=== PATIENT | male | born 1960 | race Caucasian/White ===

== ENCOUNTER 2023-10-08 12:34 | Emergency (ER) | payer BC, OTHER ==
--- NOTE | 2023-10-08 14:45 | RAD REPORT ---
EXAM DESCRIPTION: RAD - Ankle Right 3 View - 10/08/2023 2:29 pm CLINICAL HISTORY: PAIN COMPARISON: No comparisons FINDINGS/IMPRESSION: No acute fracture. No malalignment. Calcaneal spurs. Surgical clips in the soft tissues.
[2023-10-08 14:51] LABS: Absolute Lymphocytes (CBC) 1.5 K/uL (0.7-4.9); Hematocrit 35.1 % (39.6-49.0); Lymphocytes % 17.8 % (15.3-44.8); MCV 91.5 fL (80-100); MPV 8.7 fL (7.6-11.3); Platelets 260 thou/uL (152-406); RBC Red Blood Cell Count 3.83 M/uL (4.33-5.43)
--- NOTE | 2023-10-08 14:56 | RAD REPORT ---
EXAM DESCRIPTION: US - Extremity Venous Uni Ltd - 10/08/2023 2:19 pm CLINICAL HISTORY: Pain COMPARISON: None. TECHNIQUE: Real-time sonographic evaluation of the right lower extremity deep venous system was perf ormed. FINDINGS: Normal compressibility, flow augmentation, phasic flow and spontaneous flow is identified in the right lower extremity deep venous system. No intraluminal filling defects seen. IMPRESSION: No DVT in the right lower extremity.
[2023-10-08] MEDS ORDERED: HYDROCODONE/APAP 10/325 TAB ONE (15:11)
[2023-10-08 15:14] LABS: Albumin 3.6 g/dL (3.4-5.0); Bilirubin Direct 0.2 mg/dL (0-0.2); Bilirubin Indirect, Calculated 0.6 mg/dL (0.2-0.8); Bilirubin Total 0.8 mg/dL (0.2-1.0); Magnesium 2.1 mg/dL (1.6-2.4); Potassium 3.1 mEq/L (3.5-5.1); Protein, Total 7.5 g/dL (6.4-8.2); Troponin High Sensitivity 8.9 pg/mL (<58.9)
--- NOTE | 2023-10-08 15:30 | EDPHYS ---
Physician Documentation [facility] Name: Luis A Hale Age: 63 yrs Sex: Male : 1960 Arrival Date: 10/08/2023 Time: 12:34 Bed 8 Private MD: ED Physician Amor Landin HPI: 10/08 15:07 This 63 yrs old Male presents to ER via Wheelchair with complaints of Ankle Swelling. rt 15:07 Patient presents to the ED with swelling, pain to the right ankle which he first rt noticed last night. He reports compliance with his Xarelto. Is worse when he bears weight. Denies any injury. Denies other acute complaints at this time. Pain is aching nature, nonradiating, no other aggravating alleviating factors.. Historical: - Allergies: 13:01 No Known Allergies; mb9 - Home Meds: 13: Lasix 20 mg Oral tablet [Active]; Hydrochlorothiazide Oral [Active]; Xarelto oral mb9 [Active]; amlodipine 10 mg tablet [Active]; Synthroid 200 mcg Oral tablet [Active]; gabapentin 100 mg oral capsule [Active]; bupropion HCl 300 mg Oral Tablet, Extended Release 24 hr [Active]; allopurinol 100 mg Oral tablet [Active]; pravastatin 20 mg oral tablet [Active]; nadolol 40 mg oral tablet [Active]; - PMHx: 13:01 Hypertensive disorder; Diabetes mellitus; Gout; Hypercholesterolemia; mb9 - PSHx: 13:01 triple bypass; mb9 - Immunization history:: Adult Immunizations up to date. - Social history:: Smoking status: Patient denies any tobacco usage or history of. - Family history:: not pertinent. ROS: 15:07 Constitutional: Negative for fever, chills, and weight loss, Cardiovascular: Negative rt for chest pain, palpitations, and edema, Respiratory: Negative for shortness of breath, cough, wheezing, and pleuritic chest pain, Abdomen/GI: Negative for abdominal pain, nausea, vomiting, diarrhea, and constipation, Skin: Negative for injury, rash, and discoloration, Neuro: Negative for headache, weakness, numbness, tingling, and seizure, Psych: Negative for depression, anxiety, suicide ideation, homicidal ideation, and hallucinations, 15:07 MS/extremity: Positive for pain, swelling, Exam: 15:07 Constitutional: This is a well developed, well nourished patient who is awake, alert, rt and in no acute distress. Head/Face: Normocephalic, atraumatic. Chest/axilla: Normal chest wall appearance and motion. Nontender with no deformity. No lesions are appreciated. Cardiovascular: Regular rate and rhythm with a normal S1 and S2. No gallops, murmurs, or rubs. Normal PMI, no JVD. No pulse deficits. Respiratory: Lungs have equal breath sounds bilaterally, clear to auscultation and percussion. No rales, rhonchi or wheezes noted. No increased work of breathing, no retractions or nasal flaring. Abdomen/GI: Soft, non-tender, with normal bowel sounds. No distension or tympany. No guarding or rebound. No evidence of tenderness throughout. Skin: Warm, dry with normal turgor. Normal color with no rashes, no lesions, and no evidence of cellulitis. Neuro: Awake and alert, GCS 15, oriented to person, place, time, and situation. Cranial nerves II-XII grossly intact. Motor strength 5/5 in all extremities. Sensory grossly intact. Cerebellar exam normal. Normal gait. Psych: Awake, alert, with orientation to person, place and time. Behavior, mood, and affect are within normal limits. 15:07 ECG was reviewed by the Attending Physician. 15:07 Musculoskeletal/extremity: 2+ edema to the right lower extremity at the level of the ankle, tenderness over the medial malleolus, no bruising noted. Pulses, motor, sensation intact. Vital Signs: 13:00 Pulse 86; Resp 18; Temp 98; Pulse Ox 100% on R/A; mb9 13:20 Weight 122.47 kg; rs5 13:20 BP 140 / 85; Pulse 77; Resp 17; Pulse Ox 99% on R/A; rs5 14:40 BP 137 / 82; Pulse 74; Resp 16; Pulse Ox 99% on R/A; rs5 15:30 BP 135 / 79; Pulse 79; Resp 18; Pulse Ox 99% ; rs5 MDM: 13:06 Patient medically screened. rt 15:33 Differential diagnosis: gout, cellulitis, Musculoskeletal pain, DVT. Data reviewed: rt vital signs, nurses notes, lab test result(s), EKG, radiologic studies. I considered the following discharge prescriptions or medication management in the emergency department Medications were administered in the Emergency Department. See MAR. Independent interpretation of the following test(s) in the Emergency Department X-Ray: My interpretation is No fracture seen on interpretation of x-ray images. Care significantly affected by the following chronic conditions: Diabetes, Hypertension. Counseling: I had a detailed discussion with the patient and/or guardian regarding the historical points, exam findings, and any diagnostic results supporting the discharge/admit diagnosis, lab results, radiology results, the need for outpatient follow up. Response to treatment: the patient's symptoms have markedly improved after treatment. 10/08 13:08 Order name: Basic Metabolic Panel; Complete Time: 15:15 rt 10/08 13:08 Order name: CBC with Diff; Complete Time: 15:00 rt 10/08 13:08 Order name: LFT's; Complete Time: 15:15 rt 10/08 13:08 Order name: Magnesium; Complete Time: 15:15 rt 10/08 13:08 Order name: NT PRO-BNP; Complete Time: 15:15 rt 10/08 13:08 Order name: Troponin HS; Complete Time: 15:15 rt 10/08 13:08 Order name: Extremity Venous Uni Ltd US; Complete Time: 15:00 rt 10/08 13:08 Order name: Ankle Right 3 View XRAY; Complete Time: 15:00 rt 10/08 13:08 Order name: EKG; Complete Time: 13:09 rt 10/08 13:08 Order name: Cardiac monitoring; Complete Time: 15:05 rt 10/08 13:08 Order name: EKG - Nurse/Tech; Complete Time: 15:05 rt 10/08 13:08 Order name: IV Saline Lock; Complete Time: 14:44 rt 10/08 13:08 Order name: Labs collected and sent; Complete Time: 14:44 rt 10/08 13:08 Order name: O2 Per Protocol; Complete Time: 15:05 rt 10/08 13:08 Order name: O2 Sat Monitoring; Complete Time: 15:05 rt EC:07 Rate is 79 beats/min. Rhythm is irregular, A fib with Right bundle branch block. QRS rt [place] is Normal. QRS interval is normal. QT interval is prolonged at 516 msec. No Q waves. Administered Medications: 15:05 Drug: [place] PO 10 mg-325 mg 1 tabs PO once Route: PO; rs5 16:02 Follow up: Response: No adverse reaction; Pain is decreased rs5 Disposition Summary: 10/08/23 15:29 Discharge Ordered Notes: Location: Home rt Problem: new rt Symptoms: have improved rt Condition: Stable rt Diagnosis - Right ankle pain rt Followup: rt - With: Private Physician - When: 2 - 3 days - Reason: Discharge Instructions: - Discharge Summary Sheet rt - Gout rt - Ankle Pain rt Forms: - Medication Reconciliation Form rt - Thank You Letter rt - Antibiotic Education rt - Prescription Opioid Use rt - Patient Portal Instructions rt - Leadership Thank You Letter rt Signatures: Dispatcher [employer] Celina Rossi RN RN mb9 Amor Landin MD MD rt David Dickerson RN RN rs5
--- NOTE | 2023-10-08 15:30 | ER ---
Nurse's Notes [facility] Name: Luis A Hale Age: 63 yrs Sex: Male : 1960 Arrival Date: 10/08/2023 Time: 12:34 Bed 8 Private MD: Diagnosis: Right ankle pain Presentation: 10/08 13:00 Chief complaint: Patient states: "My right foot started swelling up a few days ago. Now mb9 it hurts to walk on it." Pt denies SOB. Coronavirus screen: At this time, the client does not indicate any symptoms associated with coronavirus-19. Ebola Screen: No symptoms or risks identified at this time. Initial Sepsis Screen: Does the patient meet any 2 criteria? No. Patient's initial sepsis screen is negative. Does the patient have a suspected source of infection? No. Patient's initial sepsis screen is negative. Risk Assessment: Do you want to hurt yourself or someone else? Patient reports no desire to harm self or others. Onset of symptoms was October 08, 2023. 13:00 Method Of Arrival: Wheelchair mb9 13:00 Acuity: CALDERON 3 mb9 Triage Assessment: 13:05 General: Appears in no apparent distress. Behavior is calm, cooperative. Pain: mb9 Complains of pain in right foot Quality of pain is described as aching, throbbing. EENT: No signs and/or symptoms were reported regarding the EENT system. Neuro: White Agitation-Sedation Scale (RASS): 0 - Alert and Calm Level of Consciousness is awake, alert, obeys commands, Oriented to person, place, time, situation, Appropriate for age. Cardiovascular: Denies chest pain, shortness of breath, Patient's skin is warm and dry. Respiratory: Airway is patent Respiratory effort is even, unlabored, Respiratory pattern is regular, symmetrical. Derm: Skin is pink, warm \\T\\ dry. Musculoskeletal: Range of motion: limited in right ankle Swelling present in right foot. Historical: - Allergies: 13:01 No Known Allergies; mb9 - Home Meds: 13:01 Lasix 20 mg Oral tablet [Active]; Hydrochlorothiazide Oral [Active]; Xarelto oral mb9 [Active]; amlodipine 10 mg tablet [Active]; Synthroid 200 mcg Oral tablet [Active]; gabapentin 100 mg oral capsule [Active]; bupropion HCl 300 mg Oral Tablet, Extended Release 24 hr [Active]; allopurinol 100 mg Oral tablet [Active]; pravastatin 20 mg oral tablet [Active]; nadolol 40 mg oral tablet [Active]; - PMHx: 13:01 Hypertensive disorder; Diabetes mellitus; Gout; Hypercholesterolemia; mb9 - PSHx: 13:01 triple bypass; mb9 - Immunization history:: Adult Immunizations up to date. - Social history:: Smoking status: Patient denies any tobacco usage or history of. - Family history:: not pertinent. Screenin:01 [facility] ED Fall Risk Assessment (Adult) History of falling in the last 3 months, rs5 including since admission No falls in past 3 months (0 pts) Confusion or Disorientation No (0 pts) Intoxicated or Sedated No (0 pts) Impaired Gait Yes (1 pt) Mobility Assist Device Used Yes (1 pt) Altered Elimination No (0 pt) Score/Fall Risk Level 0 - 2 = Low Risk Oriented to surroundings, Maintained a safe environment. 13:01 Abuse screen: Denies threats or abuse. Nutritional screening: No deficits noted. rs5 Tuberculosis screening: No symptoms or risk factors identified. Assessment: 13:00 General: Appears in no apparent distress. comfortable, Behavior is calm, cooperative. rs5 13:00 Pain: Complains of pain in right foot Pain does not radiate. Pain currently is 7 out of rs5 10 on a pain scale. Quality of pain is described as aching, Pain began 2-3 days ago. Is continuous. Neuro: Level of Consciousness is awake, alert, obeys commands, Oriented to person, place, time, situation. Cardiovascular: Heart tones S1 S2 present Rhythm is regular. Respiratory: Airway is patent Respiratory effort is even, unlabored, Respiratory pattern is regular, symmetrical, Breath sounds are clear bilaterally. GI: Bowel sounds present X 4 quads. Abd is soft and non tender X 4 quads. : No signs and/or symptoms were reported regarding the genitourinary system. EENT: No signs and/or symptoms were reported regarding the EENT system. Derm: Skin is intact, Skin is pink, warm \\T\\ dry. 13:00 Musculoskeletal: Range of motion: limited in right foot swelling and redness to pt's rs5 right ankle noted. Pt denies injury to affected extremity that could cause pain. 14:02 Reassessment: Patient and/or family updated on plan of care and expected duration. Pain rs5 level reassessed. Patient is alert, oriented x 3, equal unlabored respirations, skin warm/dry/pink. Patient states feeling better. 15:05 Reassessment: Ice pack provided per pt request. rs5 15:40 Reassessment: Patient and/or family updated on plan of care and expected duration. Pain rs5 level reassessed. Patient is alert, oriented x 3, equal unlabored respirations, skin warm/dry/pink. Vital Signs: 13:00 Pulse 86; Resp 18; Temp 98; Pulse Ox 100% on R/A; mb9 13:20 Weight 122.47 kg; rs5 13:20 BP 140 / 85; Pulse 77; Resp 17; Pulse Ox 99% on R/A; rs5 14:40 BP 137 / 82; Pulse 74; Resp 16; Pulse Ox 99% on R/A; rs5 15:30 BP 135 / 79; Pulse 79; Resp 18; Pulse Ox 99% ; rs5 ED Course: 12:37 Patient arrived in ED. mg5 12:38 Amor Landin MD is Attending Physician. rt 13:01 Triage completed. mb9 13:01 Patient has correct armband on for positive identification. Placed in gown. Bed in low rs5 position. Side rails up X2. 13:05 Arm band placed on. mb9 14:21 Extremity Venous Uni Ltd US In Process Unspecified. EDMS 14:30 Ankle Right 3 View XRAY In Process Unspecified. EDMS 14:35 Patient placed in an exam room, on a stretcher. ll1 14:37 David Dickerson, RN is Primary Nurse. rs5 14:44 Basic Metabolic Panel Sent. bc6 14:44 CBC with Diff Sent. bc6 14:44 LFT's Sent. bc6 14:44 Magnesium Sent. bc6 14:44 NT PRO-BNP Sent. bc6 14:44 Troponin HS Sent. bc6 14:44 Inserted saline lock: 20 gauge in right antecubital area, using aseptic technique. bc6 Blood collected. 15:50 No provider procedures requiring assistance completed. rs5 15:50 IV discontinued, intact, bleeding controlled, No redness/swelling at site. Pressure rs5 dressing applied. Administered Medications: 15:05 Drug: [place] PO 10 mg-325 mg 1 tabs PO once Route: PO; rs5 16:02 Follow up: Response: No adverse reaction; Pain is decreased rs5 Medication: 15:50 VIS not applicable for this client. rs5 Outcome: 15:29 Discharge ordered by . rt 15:50 Patient left the ED. rs5 15:50 Discharged to home via wheelchair, rs5 15:50 Condition: stable 15:50 Discharge instructions given to patient, family, Instructed on discharge instructions, follow up and referral plans. Demonstrated understanding of instructions, follow-up care, Signatures: Dispatcher [employer] EDMS Feliciano Thayer RN RN ll1 Celina Santo RN RN mb9 Amor Landin MD MD rt David Dickerson RN RN rs5 Pallavi Maher 6 Ashley Rowe mg5 Corrections: (The following items were deleted from the chart) 19:31 19:31 No provider procedures requiring assistance completed. rs5 rs5 19:33 13:00 General: Appears in no apparent distress. comfortable, Behavior is calm, rs5 cooperative, rs5 19:38 19:32 Response: No adverse reaction; Pain is decreased rs5 rs5
[2023-10-08 17:03] VITALS: TEMP 98; O2SAT 100
--- NOTE | 2023-10-08 17:33 | EKG ---
Test Date: 2023-10-08 Test Time: 15:01:21 Vice President Of Nursing: PAOLO MEASUREMENT RESULTS: Intervals: Rate: 79 CT: QRSD: 112 QT: 450 QTc: 516 [place]: P: CT: QRS: 22 T: 1 INTERPRETIVE STATEMENTS: Atrial fibrillation Incomplete right bundle branch block Nonspecific ST abnormality Prolonged QT Abnormal ECG Compared to ECG 01/08/2016 19:07:30 Incomplete right bundle-branch block now present ST (T wave) deviation now present Prolonged QT interval now present Sinus rhythm no longer present Ventricular premature complex(es) no longer present Electronically Signed On 10-08-23 17:25:06 [employer] by Jan Mauricio
--- NOTE | 2023-10-09 10:43 | EKG ---
Test Date: 2023-10-08 Test Time: 15:01:56 [place] Hand: PAOLO MEASUREMENT RESULTS: Intervals: Rate: 78 [place]: QRSD: 102 QT: 460 QTc: 524 [place]: P: [place]: QRS: 23 T: 19 INTERPRETIVE STATEMENTS: Atrial fibrillation Prolonged QT Abnormal ECG Compared to ECG 10/08/2023 15:01:21 Incomplete right bundle-branch block no longer present ST (T wave) deviation no longer present Electronically Signed On 10-09-23 10:41:47 [employer] by Jan Mauricio
== END 2023-10-08 15:50 | disposition home or self-care (01) ==
LOC: ER 12:34
DX: M25.571 Pain in right ankle and joints of right foot (principal); E11.9 Type 2 diabetes mellitus without complications; I10 Essential (primary) hypertension; Z79.01 Long term (current) use of anticoagulants; Z95.1 Presence of aortocoronary bypass graft
CPT/HCPCS: 36415; 80048; 80076; 83735; 83880; 84484; 85025; 93005; 93971; 99284